=== PATIENT | female | born 1990 | race Caucasian/White ===

== ENCOUNTER 2018-06-15 17:38 | Emergency (ER) | payer OTHER ==
[~2018-06-15] VITALS: Ht 154.9 cm; Wt 68.5 kg
[~2018-06-15 17:38] MED LIST: ALLEGRA30 MG/5 ML
[2018-06-15] MEDS ORDERED: PRILOSEC10 MG (17:48)
[2018-06-15] MEDS ORDERED: ZANTAC150 MG (17:48)
== END 2018-06-16 00:06 | disposition home or self-care (01) ==
LOC: ER 17:38
DX: K21.9 Gastro-esophageal reflux disease without esophagitis (principal)